=== PATIENT | female | born 1960 | race Caucasian/White ===

== ENCOUNTER 2017-08-05 07:55 | Observation (INO) | payer BC ==
[~2017-08-05] VITALS: Ht 152.4 cm; Wt 51.8 kg
[~2017-08-05 07:55] MED LIST: HYOS0.1283 SL; LEVO500T2 PO; PROM25SU43 RC
[2017-08-05] MEDS ORDERED: fentaNYL INJECTION 100 MCG/2 ML AMP IVP STA ×2 (08:06→09:19)
[2017-08-05] MEDS ORDERED: NS IV 1000 ML 1,000 ML IV ONE (08:06)
--- NOTE | 2017-08-05 08:14 | ED Abdominal Pain ---
General Stated Complaint: ABDOMINAL PAIN,VOMITTING Source of Information: Patient Exam Limitations: No Limitations History of Present Illness Date Seen by Provider: Aug 05, 2017 Time Seen by Provider: 08:01 Initial Comments Here with complaint of abdominal distention and pain that has worsened since 9 p.m. last night. Has complicated history with regard to abdominal problems including bowel obstruction in the past. She reports that she's had to have NG tube placed due to obstruction. Has diagnosis of gastroparesis now as well. Denies fever or chills. Did have small stool earlier but not significant stool. Last time that she had have NG tube placed was about 2 months ago. She follows with a service director in [place]. Timing/Duration: 12 Hours Severity/Quality: Moderate, Severe Location: Generalized Abdomen Radiation: Epigastric Activities at Onset: None Modifying Factors: Worsens With Eating; Improves With Vomiting Associated Symptoms: No Back Pain, No Chest Pain, No Diaphoresis, No Fever/ Chills; Nausea/Vomiting; No Shortness of Air; Swelling/Mass in Abdomen Allergies and Home Medications Allergies Coded Allergies: No Known Drug Allergies (Unverified , 08/05/17) Patient Home Medication List Home Medication List Reviewed: Yes (currently only takes Prilosec twice a day) Review of Systems Constitutional: see HPI; No chills; fever EENTM: No Symptoms Reported Respiratory: No Symptoms Reported; Denies Cough, Denies SOA at Rest Cardiovascular: No Symptoms Reported Gastrointestinal: See HPI, Abdominal Pain, Nausea, Vomiting Genitourinary: No Symptoms Reported Musculoskeletal: No back pain, No muscle pain Skin: No change in color, No lesions Psychiatric/Neurological: No Symptoms Reported Endocrine: No Symptoms Reported All Other Systems Reviewed Negative Unless Noted: Yes Past Wtylmgv-Czkavy-Nfikyt Hx Past Med/Social Hx: Reviewed Nursing Past Med/Soc Hx Patient Social History Alcohol Use: Denies Use Recreational Drug Use: No Smoking Status: Never a Smoker Recent Foreign Travel: No Contact w/Someone Who Travel: No Past Medical History Surgeries: Yes Abdominal, Cardiac, Section, Eye Surgery, Gallbladder, Orthopedic, Tubal Ligation Respiratory: No Palpitations Neurological: Yes Headaches /Migraines 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, Menopausal Gastrointestinal: Yes Gastroesophageal Reflux, Obstructive Bowel, Pancreatitis, Ulcer Musculoskeletal: Yes Degenerate Disk Disease, Chronic Back Pain Psychosocial: Yes Sleep Difficulties Family Medical History Reviewed and Corrections made No Pertinent Family Hx Physical Exam Vital Signs Vital Signs - First Documented 08/05/17 08:00 Temp 98.6 Pulse 93 Resp 18 B/P (MAP) 136/90 (105) O2 Delivery Room Air Capillary Refill : General Appearance: WD/WN, moderate distress (pain related) HEENT: PERRL/EOMI, pharynx normal Neck: full range of motion, supple Respiratory: lungs clear, normal breath sounds Cardiovascular: regular rate, rhythm, no murmur Peripheral Pulses: 2+ Dorsalis Pedis (R), 2+ Left Dors-Pedis (L), 2+ Radial Pulses (R), 2+ Radial Pulses (L) Gastrointestinal: soft, distended, tenderness (diffusely but greatest in the upper quadrants.) Extremities: non-tender, normal inspection Back: normal inspection, no CVA tenderness, no vertebral tenderness Neurologic/Psychiatric: alert, oriented x 3 Skin: normal color, warm/dry Progress/Results/Core Measures Results/Orders Lab Results Laboratory Tests Test 08/05/17 08:11 08/05/17 09:12 Range/Units White Blood Count 8.5 4.3-11.0 10^3/uL Red Blood Count 4.89 4.35-5.85 10^6/uL Hemoglobin 11.3 L 11.5-16.0 G/DL Hematocrit 35 35-52 % Mean Corpuscular Volume 72 L 80-99 FL Mean Corpuscular Hemoglobin 23 L 25-34 PG Mean Corpuscular Hemoglobin Concent 32 32-36 G/DL Red Cell Distribution Width 14.7 H 10.0-14.5 % Platelet Count 505 H 130-400 10^3/uL Mean Platelet Volume 9.9 7.4-10.4 FL Neutrophils (%) (Auto) 89 H 42-75 % Lymphocytes (%) (Auto) 8 L 12-44 % Monocytes (%) (Auto) 3 0-12 % Eosinophils (%) (Auto) 0 0-10 % Basophils (%) (Auto) 0 0-10 % Neutrophils # (Auto) 7.6 1.8-7.8 X 10^3 Lymphocytes # (Auto) 0.7 L 1.0-4.0 X 10^3 Monocytes # (Auto) 0.3 0.0-1.0 X 10^3 Eosinophils # (Auto) 0.0 0.0-0.3 10^3/uL Basophils # (Auto) 0.0 0.0-0.1 10^3/uL Neutrophils % (Manual) 84 % Lymphocytes % (Manual) 13 % Monocytes % (Manual) 3 % Dohle Bodies MODERATE Sodium Level 146 H 135-145 MMOL/L Potassium Level 3.7 3.6-5.0 MMOL/L Chloride Level 108 H 98-107 MMOL/L Carbon Dioxide Level 22 21-32 MMOL/L Anion Gap 16 H 5-14 MMOL/L Blood Urea Nitrogen 13 7-18 MG/DL Creatinine 0.80 0.60-1.30 MG/DL Estimat Glomerular Filtration Rate > 60 BUN/Creatinine Ratio 16 Glucose Level 167 H 70-105 MG/DL Calcium Level 10.8 H 8.5-10.1 MG/DL Magnesium Level 2.2 1.8-2.4 MG/DL Total Bilirubin 0.3 0.1-1.0 MG/DL Aspartate Amino Transf (AST/SGOT) 13 5-34 U/L Alanine Aminotransferase (ALT/SGPT) 9 0-55 U/L Alkaline Phosphatase 66 40-136 U/L Total Protein 8.0 6.4-8.2 GM/DL Albumin 5.1 H 3.2-4.5 GM/DL Amylase Level 100 25-125 U/L Lipase 97 H 8-78 U/L Urine Color YELLOW Urine Clarity CLEAR Urine pH 9 5-9 Urine Specific [place] 1.015 L 1.016-1.022 Urine Protein 2+ H NEGATIVE Urine Glucose (UA) NEGATIVE NEGATIVE Urine Ketones NEGATIVE NEGATIVE Urine Nitrite NEGATIVE NEGATIVE Urine Bilirubin NEGATIVE NEGATIVE Urine Urobilinogen NORMAL NORMAL MG/DL Urine Leukocyte Esterase 1+ H NEGATIVE Urine RBC (Auto) NEGATIVE NEGATIVE Urine RBC NONE /HPF Urine WBC 0-2 /HPF Urine Squamous Epithelial Cells 2-5 /HPF Urine Crystals NONE /LPF Urine Bacteria NEGATIVE /HPF Urine Casts NONE /LPF Urine Mucus LARGE H /LPF Urine Culture Indicated NO My Orders Orders - GABRIELA BENNETT MD Amylase (08/05/17 08:06) Cbc With Automated Diff (08/05/17 08:06) Comprehensive Metabolic Panel (08/05/17 08:06) Lipase (08/05/17 08:06) Magnesium (08/05/17 08:06) Ua Culture If Indicated (08/05/17 08:06) Ct Abdomen/Pelvis W (08/05/17 08:06) Saline Lock/Iv-Start (08/05/17 08:06) Ns Iv 1000 Ml (Sodium Chloride 0.9%) (08/05/17 08:06) Ondansetron Injection (Zofran Injectio (08/05/17 08:15) Fentanyl Injection (Sublimaze Injection (08/05/17 08:06) Iohexol Injection (Omnipaque 350 Mg/Ml 1 (08/05/17 08:15) Ns (Ivpb) (Sodium Chloride 0.9%) (08/05/17 08:15) Manual Differential (08/05/17 08:11) Ng Tube Insert & Assessment (08/05/17 09:19) Fentanyl Injection (Sublimaze Injection (08/05/17 09:19) Chest 1 View, Ap/Pa Only (08/05/17 10:23) Medications Given in ED Current Medications Medications Dose Ordered Sig/Cathy Route Start Time Stop Time Status Last Admin Dose Admin Iohexol 100 ml ONCE ONCE IV 08/05/17 08:15 08/05/17 08:43 DC 08/05/17 08:54 100 ML Ondansetron HCl 4 mg ONCE ONCE IVP 08/05/17 08:15 08/05/17 08:16 DC 08/05/17 08:17 4 MG Sodium Chloride 80 ml ONCE ONCE IV 08/05/17 08:15 08/05/17 08:43 DC 08/05/17 08:54 80 ML Sodium Chloride 1,000 ml @ 0 mls/hr Q0M ONCE IV 08/05/17 08:06 08/05/17 08:09 DC 08/05/17 08:20 1,000 MLS/HR Vital Signs/I&O 08/05/17 08:00 Temp 98.6 Pulse 93 Resp 18 B/P (MAP) 136/90 (105) O2 Delivery Room Air Progress Progress Note : Progress Note Seen and evaluated. IV, labs and UA ordered. Normal saline 1 L bolus. Zofran 4 mg IV and fentanyl [address] abdomen and pelvis with contrast ordered. Monitor patient. 0945: I have discussed the case with the radiologist and have reviewed the film. I have ordered an NG tube and repeat fentanyl 50 g IV for pain. I have discussed the case with Dr. Mccormick who will see the patient in the ER. Patient updated on all findings and concerns and agrees with plan. 1115: Dr. Mccormick has seen the patient and will admit her, inpatient status. Patient agrees with plan. Approximately 1500 mL of fluid out after NG placement. Patient states she feels better. Diagnostic Imaging Diagonstic Imaging: CT Plain Films/CT/US/NM/MRI: abdomen, pelvis Comments TECHNIQUE: Multiple contiguous axial images were obtained through the abdomen and pelvis after administration of intravenous contrast. INDICATION: Left upper quadrant pain. FINDINGS: The previous CT abdomen/pelvis exam of 05/02/2015 noted marked distention of the stomach. There also appeared to be distention of the proximal small bowel adjacent to the stomach and there were postsurgical changes at the gastroenteric junction. There are similar findings on this study. The stomach is perhaps even more greatly distended than noted on the prior exam. I am concerned that there is a gastric outlet obstruction. If further study is desired, then either endoscopy or an upper GI exam would be recommended. At any rate, consideration should be given to the insertion of an NG tube to decompress the stomach and the small bowel. There is no acute abnormality of the abdomen or pelvis noted otherwise. The liver, spleen, pancreas, adrenals, kidneys, aorta and inferior vena cava show no sign of an acute abnormality. Pancreas is flattened, however, due to the distended stomach. As noted on the prior exam, the gallbladder is surgically absent. There is no pelvic mass or free fluid collection noted. The uterus and urinary bladder are unchanged when compared to the prior study. The appendix is not well visualized. There are no indirect signs of acute appendicitis. The bone windows show no evidence for a fracture or for a destructive lesion. The postsurgical changes at L4-L5 noted previously are no different. The lung bases are clear. IMPRESSION: 1. There is marked distention of the stomach by fluid and particulate matter. This appearance is quite similar to the prior exam and is most likely due to a gastric outlet obstruction near the anastomosis of the stomach and small bowel. Recommendations as above. 2. There is no acute abnormality of the abdomen or pelvis noted otherwise. 3. These results were discussed with Dr. Bennett in the ER. Dictated on workstation # [id number] Dict: 08/05/17 0909 Trans: 08/05/17 0941 [id number] Interpreted by: KENNY SILVEIRA MD Electronically signed by: Reviewed: Reviewed by Me, Discussed w/Radiologist Departure Communication (Admissions) Time/Spoke to Admitting Phy: 09:45 Impression Primary Impression: Small bowel obstruction Disposition: ADMITTED INPATIENT Condition: Stable Admissions Decision to Admit Reason: Admit from ER (General) Decision to Admit/Date: Aug 05, 2017 Time/Decision to Admit Time: 09:45 Departure-Patient Inst. Referrals: CRISTIAN COMBS MD (PCP/Family) Primary Care Physician GABRIELA BENNETT MD Aug 05, 2017 08:14
[2017-08-05] MEDS ORDERED: NS 250 ML (IVPB) BAG IV ONE (08:15)
[2017-08-05] MEDS ORDERED: IOHEXOL 350 MG/ML 100 ML (OMNIPAQUE 350) VIAL IV ONE (08:15)
[2017-08-05] MEDS ORDERED: ONDANSETRON 4 MG/2 ML (SDV) Z0FRAN IVP ONE (08:15)
[2017-08-05 08:19] LABS: BASOPHILS % (AUTO) 0 % (0-10); EOSINOPHILS % (AUTO) 0 % (0-10); HEMATOCRIT 35 % (35-52); HEMOGLOBIN 11.3 G/DL (11.5-16.0); LYMPHOCYTES # (AUTO) 0.7 X 10^3 (1.0-4.0); LYMPHOCYTES % (AUTO) 8 % (12-44); MEAN CORPUSCULAR HEMOGLOBIN 23 PG (25-34); MEAN CORPUSCULAR HGB CONC 32 G/DL (32-36); MEAN CORPUSCULAR VOLUME 72 FL (80-99); MEAN PLATELET VOLUME 9.9 FL (7.4-10.4); MONOCYTES # (AUTO) 0.3 X 10^3 (0.0-1.0); MONOCYTES % (AUTO) 3 % (0-12); NEUTROPHILS # (AUTO) 7.6 X 10^3 (1.8-7.8); NEUTROPHILS % (AUTO) 89 % (42-75); PLATELET COUNT 505 10^3/uL (130-400); RED BLOOD COUNT 4.89 10^6/uL (4.35-5.85); RED CELL DISTRIBUTION WIDTH 14.7 % (10.0-14.5); WHITE BLOOD COUNT 8.5 10^3/uL (4.3-11.0)
[2017-08-05] MEDS ORDERED: OMEP40CA36 PO (08:29)
[2017-08-05 08:33] LABS: LYMPHOCYTES % (MANUAL) 13 %; MONOCYTES % (MANUAL) 3 %; NEUTROPHILS % (MANUAL) 84 %
[2017-08-05 08:36] LABS: ALANINE AMINOTRANSFERASE 9 U/L (0-55); ALBUMIN 5.1 GM/DL (3.2-4.5); ALKALINE PHOSPHATASE 66 U/L (40-136); AMYLASE 100 U/L (25-125); BILIRUBIN,TOTAL 0.3 MG/DL (0.1-1.0); BUN/CREATININE RATIO 16; CALCIUM 10.8 MG/DL (8.5-10.1); CARBON DIOXIDE 22 MMOL/L (21-32); CHLORIDE 108 MMOL/L (98-107); GFR ESTIMATED > 60; GLUCOSE 167 MG/DL (70-105); LIPASE 97 U/L (8-78); MAGNESIUM 2.2 MG/DL (1.8-2.4); POTASSIUM 3.7 MMOL/L (3.6-5.0); SODIUM 146 MMOL/L (135-145)
[2017-08-05 09:25] LABS: BILIRUBIN,URINE NEGATIVE (NEGATIVE); CLARITY,URINE CLEAR; COLOR,URINE YELLOW; GLUCOSE, URINE (UA) NEGATIVE (NEGATIVE); KETONES,URINE NEGATIVE (NEGATIVE); LEUKOCYTE ESTERASE ,URINE 1+ (NEGATIVE); NITRITE,URINE NEGATIVE (NEGATIVE); PH,URINE 9 (5-9); PROTEIN,URINE 2+ (NEGATIVE); UROBILINOGEN,URINE NORMAL (NORMAL)
--- NOTE | 2017-08-05 09:42 | Diagnostic Imaging Report ---
PROCEDURE: CT abdomen and pelvis with contrast. TECHNIQUE: Multiple contiguous axial images were obtained through the abdomen and pelvis after administration of intravenous contrast. INDICATION: Left upper quadrant pain. FINDINGS: The previous CT abdomen/pelvis exam of 05/02/2015 noted marked distention of the stomach. There also appeared to be distention of the proximal small bowel adjacent to the stomach and there were postsurgical changes at the gastroenteric junction. There are similar findings on this study. The stomach is perhaps even more greatly distended than noted on the prior exam. This appearance does suggest that there is a recurrent obstruction of the anastomosis.. If further study is desired, then either endoscopy or an upper GI exam would be recommended. At any rate, consideration should be given to the insertion of an NG tube to decompress the stomach and the small bowel. There is no acute abnormality of the abdomen or pelvis noted otherwise. The liver, spleen, pancreas, adrenals, kidneys, aorta and inferior vena cava show no sign of an acute abnormality. Pancreas is flattened, however, due to the distended stomach. As noted on the prior exam, the gallbladder is surgically absent. There is no pelvic mass or free fluid collection noted. The uterus and urinary bladder are unchanged when compared to the prior study. The appendix is not well visualized. There are no indirect signs of acute appendicitis. The bone windows show no evidence for a fracture or for a destructive lesion. The postsurgical changes at L4-L5 noted previously are no different. The lung bases are clear. IMPRESSION: 1. There is marked distention of the stomach by fluid and particulate matter. This appearance is quite similar to the prior exam and is most likely due to a gastric outlet obstruction near the anastomosis of the stomach and small bowel. Recommendations as above. 2. There is no acute abnormality of the abdomen or pelvis noted otherwise. 3. These results were discussed with Dr. Ledesma in the ER. Dictated by: Dictated on workstation # [id number]
[2017-08-05 09:44] LABS: BACTERIA,URINE NEGATIVE /HPF; WBC,URINE 0-2 /HPF
--- NOTE | 2017-08-05 11:16 | Diagnostic Imaging Report ---
INDICATION: Lower abdominal pain intermittently since last night with vomiting. TECHNIQUE: Single view chest 10:55 a.m. CORRELATION STUDY: 05/02/2015. FINDINGS: A gastric tube has been placed with tip in the left upper quadrant. There does appear to be moderate amount of retained gastric contents. Heart size, mediastinum and vasculature within normal limits. Lungs with minimal left basilar scarring or atelectasis. IMPRESSION: 1. Gastric tube has been in place. There does appear to be significant amount of retained gastric contents. Correlation for potential gastric outlet obstruction or gastroparesis. Dictated by: Dictated on workstation # [id number]
[2017-08-05] MEDS ORDERED: ONDANSETRON 4 MG/2 ML (SDV) Z0FRAN IVP PRN (11:30)
[2017-08-05 11:43] VITALS: BP 145/70
--- NOTE | 2017-08-05 11:45 | History & Physical-Surgical ---
History of Present Illness History of Present Illness Reason for visit/HPI HPI per ED: Here with complaint of abdominal distention and pain that has worsened since 9 p.m. last night. Has complicated history with regard to abdominal problems including bowel obstruction in the past. She reports that she's had to have NG tube placed due to obstruction. Has diagnosis of gastroparesis now as well. Denies fever or chills. Did have small stool earlier but not significant stool. Last time that she had have NG tube placed was about 2 months ago. 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 Timing/Duration: 12 Hours Severity/Quality: Moderate, Severe Location: Generalized Abdomen Radiation: Epigastric Activities at Onset: None Modifying Factors: Worsens With Eating; Improves With Vomiting Associated Symptoms: No Back Pain, No Chest Pain, No Diaphoresis, No Fever/ Chills; Nausea/Vomiting; No Shortness of Air; Swelling/Mass in Abdomen When I spoke to pt she stated this basically started 3 yrs ago, during EGD an ulcer was found and attampt to dilate (pt states cauterize) caused perforation. She then had sugery to "reroute" intestine. She states she get pain like this often and goes to the ER 3-4 times a year at least. Today's episode started last monday but went away monday, then came back monday and then went away. Pain came back last night and wouldn't go away, she was up all night with nausea and vomiting and pain 10 out of 10. She states she has been told she has gastroparesis. Recently saw GI in [place] and EGD at that time showed a Gastro-jejunal ulcer. Date of Admission Aug 05, 2017 at 11:06 Time Seen by Provider: 11:01 I consulted on this patient on 08/05/17 11:34 Attending Physician Zhou Mccormick DO Admitting Physician Jaye Redman MD Consult Allergies and Home Medications Allergies Coded Allergies: No Known Drug Allergies (Unverified , 04/09/15) Patient Home Medication List Home Medication List Reviewed: Yes Past Goizjol-Gjyeyp-Idrkzw Hx Patient Social History Alcohol Use: Denies Use Recreational Drug Use: No Smoking Status: Never a Smoker Recent Foreign Travel: No Contact w/Someone Who Travel: No Recent Infectious Disease Expo: No Surgeries History of Surgeries: Yes Surgeries: Abdominal, Cardiac, Section, Eye Surgery, Gallbladder, Orthopedic, Tubal Ligation Respiratory History of Respiratory Disorde: No Cardiovascular History of Cardiac Disorders: Yes (CARDIAC ABLATION 2009 ) Cardiac Disorders: Palpitations Neurological History of Neurological Disord: Yes Neurological Disorders: Headaches /Migraines Reproductive System Hx Reproductive Disorders: 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, Menopausal Gastrointestinal History of Gastrointestinal Di: Yes (GASTROPARESIS) Gastrointestinal Disorders: Gastroesophageal Reflux, Obstructive Bowel, Pancreatitis, Ulcer Musculoskeletal History of Musculoskeletal Dis: Yes Musculoskeletal Disorders: Degenerate Disk Disease, Chronic Back Pain Endocrine History of Endocrine Disorders: No Cancer History of Cancer: No Psychosocial History of Psychiatric Problem: Yes Behavioral Health Disorders: Sleep Difficulties Family Medical History Significant Family History: Heart Disease (Mother has CHF), Cancer (Father had melanoma), Hypertension (mother) Constitutional: diaphoresis, dizziness, weakness EENTM: No blurred vision, No eye pain, No mouth pain, No mouth swelling, No epistaxis, No throat swelling Respiratory: No cough, No dyspnea on exertion Cardiovascular: No chest pain, No edema; palpitations Gastrointestinal: abdominal pain; No hematemesis; nausea, vomiting, other ( bloating) Genitourinary: No dysuria, No frequency, No hematuria Musculoskeletal: back pain, joint pain, joint swelling, muscle stiffness Skin: No change in color, No change in hair/nails, No lesions Psychiatric/Neurological: Denies Anxiety, Denies Depressed; Headache; Denies Seizure, Denies Tremors pt denies any abnormal bruising or bleeding, no heat or cold intolerance Physical Exam Vital Signs Vital Signs - First Documented 08/05/17 08/05/17 08:00 11:14 Temp 98.6 Pulse 93 Resp 18 B/P (MAP) 136/90 (105) Pulse Ox 97 O2 Delivery Room Air Capillary Refill : Less Than 3 Seconds General Appearance: WD/WN, Mild Distress Eyes: Bilateral Eye PERRL, Bilateral Eye EOMI HEENT: PERRL/EOMI, Pharynx Normal, Moist Mucous Membranes; No Pale Conjunctivae (L), No Pale Conjunctivae (R), No Scleral Icterus (L), No Scleral Icterus (R) Neck: Full Range of Motion, Normal Inspection, Non Tender, Supple Respiratory: Chest Non Tender, Lungs Clear, Normal Breath Sounds, No Accessory Muscle Use, No Respiratory Distress Cardiovascular: Regular Rate, Rhythm, No Edema, No Murmur, Normal Peripheral Pulses Gastrointestinal: Normal Bowel Sounds, No Organomegaly, No Pulsatile Mass, Soft , Tenderness (mildly tender) Back: No CVA Tenderness, No Vertebral Tenderness Extremity: Normal Capillary Refill, Normal Inspection, Normal Range of Motion, Non Tender, No Calf Tenderness Neurologic/Psychiatric: Alert, Oriented x3, No Motor/Sensory Deficits, Normal Mood/Affect, wire drawer II-XII Norm as Tested Skin: Normal Color, Warm/Dry Lymphatic: No Adenopathy (neck, axilla or groin) Data Review Labs Laboratory Tests 08/05/17 08:11: White Blood Count 8.5, Red Blood Count 4.89, Hemoglobin 11.3L, Hematocrit 35, Mean Corpuscular Volume 72L, Mean Corpuscular Hemoglobin 23L, Mean Corpuscular Hemoglobin Concent 32, Red Cell Distribution Width 14.7H, Platelet Count 505H, Mean Platelet Volume 9.9, Neutrophils (%) (Auto) 89H, Lymphocytes (%) (Auto) 8L , Monocytes (%) (Auto) 3, Eosinophils (%) (Auto) 0, Basophils (%) (Auto) 0, Neutrophils # (Auto) 7.6, Lymphocytes # (Auto) 0.7L, Monocytes # (Auto) 0.3, Eosinophils # (Auto) 0.0, Basophils # (Auto) 0.0, Neutrophils % (Manual) 84, Lymphocytes % (Manual) 13, Monocytes % (Manual) 3, Dohle Bodies MODERATE, Sodium Level 146H, Potassium Level 3.7, Chloride Level 108H, Carbon Dioxide Level 22, Anion Gap 16H, Blood Urea Nitrogen 13, Creatinine 0.80, Estimat Glomerular Filtration Rate > 60, BUN/Creatinine Ratio 16, Glucose Level 167H, Calcium Level 10.8H, Magnesium Level 2.2, Total Bilirubin 0.3, Aspartate Amino Transf (AST/SGOT) 13, Alanine Aminotransferase (ALT/SGPT) 9, Alkaline Phosphatase 66, Total Protein 8.0, Albumin 5.1H, Amylase Level 100, Lipase 97H 08/05/17 09:12: Urine Color YELLOW, Urine Clarity CLEAR, Urine pH 9, Urine Specific [place] 1.015L, Urine Protein 2+H, Urine Glucose (UA) NEGATIVE, Urine Ketones NEGATIVE, Urine Nitrite NEGATIVE, Urine Bilirubin NEGATIVE, Urine Urobilinogen NORMAL, Urine Leukocyte Esterase 1+H, Urine RBC (Auto) NEGATIVE, Urine RBC NONE, Urine WBC 0-2, Urine Squamous Epithelial Cells 2-5, Urine Crystals NONE, Urine Bacteria NEGATIVE, Urine Casts NONE, Urine Mucus LARGEH, Urine Culture Indicated NO Assessment/Plan Assessment/Plan Admission Diagonsis Partial Gastric Outlet Obstruction Admission Status: Observation Assessment/Plan Partial Gastric Outlet Obstruction Gastro-jejunal ulcer Gastric Distention Gastroparesis Pt will be admitted with IV fluids, NPO, anti-emetics, pain control and NGT to [facility]. Pt was told to ambulate and use IS. Will get repeat abd xray in am. Hopefully this will resolve on its own; but she may need EGD. Will try to avoid surgery. Protonix drip will be started. Pt must find specialist in Gastroparesis; hopefully they will have something to offer (stimulator or even total gastric resection). ZHOU MCCORMICK DO Aug 05, 2017 11:45
[2017-08-05] MEDS: LACTATED RINGERS 1,000 ML IV SCH ×2 (12:28→19:51)
[2017-08-05] MEDS ORDERED: SUCR1TAB36 PO (12:34)
[2017-08-05] MEDS: PANTOPRAZOLE INJECTION 200 MG in D5W 100 ML IVPB 50 ML IV SCH (12:58)
[2017-08-05] MEDS: morphine INJ 10 MG/ML 1ML (SYR OR VIAL) IVP PRN ×3 (12:58→21:50)
[2017-08-05 15:35] VITALS: BP 122/72
[2017-08-05 19:40] VITALS: BP 116/57
[2017-08-06 00:12] VITALS: BP 134/71
[2017-08-06] MEDS: morphine INJ 10 MG/ML 1ML (SYR OR VIAL) IVP PRN ×3 (03:52→19:31)
[2017-08-06] MEDS: LACTATED RINGERS 1,000 ML IV SCH ×3 (03:53→18:46)
[2017-08-06 04:23] VITALS: BP 144/70
[2017-08-06 05:18] LABS: BASOPHILS % (AUTO) 1 % (0-10); EOSINOPHILS # (AUTO) 0.1 10^3/uL (0.0-0.3); EOSINOPHILS % (AUTO) 1 % (0-10); HEMATOCRIT 31 % (35-52); HEMOGLOBIN 9.5 G/DL (11.5-16.0); LYMPHOCYTES # (AUTO) 2.6 X 10^3 (1.0-4.0); LYMPHOCYTES % (AUTO) 34 % (12-44); MEAN CORPUSCULAR HEMOGLOBIN 23 PG (25-34); MEAN CORPUSCULAR HGB CONC 31 G/DL (32-36); MEAN CORPUSCULAR VOLUME 74 FL (80-99); MEAN PLATELET VOLUME 9.6 FL (7.4-10.4); MONOCYTES # (AUTO) 0.6 X 10^3 (0.0-1.0); MONOCYTES % (AUTO) 7 % (0-12); NEUTROPHILS # (AUTO) 4.3 X 10^3 (1.8-7.8); NEUTROPHILS % (AUTO) 57 % (42-75); PLATELET COUNT 405 10^3/uL (130-400); RED CELL DISTRIBUTION WIDTH 14.9 % (10.0-14.5); WHITE BLOOD COUNT 7.6 10^3/uL (4.3-11.0)
[2017-08-06 05:40] LABS: ALANINE AMINOTRANSFERASE 8 U/L (0-55); ALBUMIN 3.7 GM/DL (3.2-4.5); ALKALINE PHOSPHATASE 50 U/L (40-136); BILIRUBIN,TOTAL 0.3 MG/DL (0.1-1.0); BUN/CREATININE RATIO 14; CALCIUM 8.6 MG/DL (8.5-10.1); CARBON DIOXIDE 24 MMOL/L (21-32); CHLORIDE 109 MMOL/L (98-107); CREATININE SERUM 0.71 MG/DL (0.60-1.30); GFR ESTIMATED > 60; GLUCOSE 109 MG/DL (70-105); POTASSIUM 3.3 MMOL/L (3.6-5.0); SODIUM 144 MMOL/L (135-145); TOTAL PROTEIN 5.6 GM/DL (6.4-8.2)
[2017-08-06 08:00] VITALS: BP 114/54
--- NOTE | 2017-08-06 09:53 | Diagnostic Imaging Report ---
INDICATION: Gastric obstruction. TECHNIQUE: Single supine portable view of the abdomen 2:32 AM. CORRELATION STUDY: 05/02/2015 FINDINGS: Gastric tube noted in the left mid upper abdomen likely along the greater curvature of the body of the stomach. Scattered gas filled loops of bowel are present. Surgical changes of a suture line as well as dina are present. IMPRESSION: 1. Gastric tube tip likely in the region of the body of the stomach along the greater curvature. Dictated by: Dictated on workstation # [id number]
[2017-08-06] MEDS: PANTOPRAZOLE INJECTION 200 MG in D5W 100 ML IVPB 50 ML IV SCH (11:19)
[2017-08-06 12:00] VITALS: BP_SYST 118; BP_SYST 178; BP_DIAS 61; BP_DIAS 84
--- NOTE | 2017-08-06 14:02 | Progress Note ---
Subjective Time Seen by Provider: 12:20 Subjective/Events-last exam Pt seen and examined, states she feels better than yesterday. However, she states the tube in her nose is making her nauseous and giving her a headache. Pt denies flatus or BM and denies abdominal pain. Review of Systems General: No Chills, No Night Sweats HEENT: Head Aches Pulmonary: No Dyspnea, No Cough Cardiovascular: No: Chest Pain, Palpitations Gastrointestinal: Nausea, Abdominal Pain, Constipation; No: Vomiting Objective Exam Vital Signs Date Time Temp Pulse Resp B/P (MAP) Pulse Ox O2 Delivery O2 Flow Rate FiO2 08/06/17 12:00 98.6 70 18 118/61 (80) 97 Room Air 08/06/17 08:00 98.9 74 18 114/54 (74) 97 Room Air 08/06/17 04:23 99.2 81 18 144/70 (94) 96 Room Air 08/06/17 00:12 100.7 79 18 134/71 (92) 97 Room Air 08/05/17 19:40 99.8 73 18 116/57 (76) 99 Room Air 08/05/17 15:35 98.6 75 18 122/72 (89) 99 Room Air I & O 08/06/17 07:00 Intake Total 2000 ml Output Total 1250 ml Balance 750 ml Capillary Refill : Less Than 3 Seconds General Appearance: WD/WN, Mild Distress HEENT: PERRL/EOMI, Pharynx Normal, Moist Mucous Membranes; No Pale Conjunctivae (L), No Pale Conjunctivae (R), No Scleral Icterus (L), No Scleral Icterus (R) Neck: Full Range of Motion, Normal Inspection, Non Tender, Supple Respiratory: Chest Non Tender, Lungs Clear, Normal Breath Sounds, No Accessory Muscle Use, No Respiratory Distress Cardiovascular: Regular Rate, Rhythm, No Edema, No Murmur, Normal Peripheral Pulses Peripheral Pulses: 2+ Dorsalis Pedis (R), 2+ Left Dors-Pedis (L), 2+ Radial Pulses (R), 2+ Radial Pulses (L) Gastrointestinal: soft, tenderness (very minimal, abdomen is very soft now) Extremity: Normal Capillary Refill, Normal Inspection, Normal Range of Motion, Non Tender, No Calf Tenderness Neurologic/Psychiatric: Alert, Oriented x3, No Motor/Sensory Deficits, Normal 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, 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 Skin: Normal Color, Warm/Dry Lymphatic: No Adenopathy (neck, axilla or groin) Results Lab Laboratory Tests 08/06/17 05:02: White Blood Count 7.6, Red Blood Count 4.20L, Hemoglobin 9.5L, Hematocrit 31L, Mean Corpuscular Volume 74L, Mean Corpuscular Hemoglobin 23L, Mean Corpuscular Hemoglobin Concent 31L, Red Cell Distribution Width 14.9H, Platelet Count 405H, Mean Platelet Volume 9.6, Neutrophils (%) (Auto) 57, Lymphocytes (%) (Auto) 34, Monocytes (%) (Auto) 7, Eosinophils (%) (Auto) 1, Basophils (%) (Auto) 1, Neutrophils # (Auto) 4.3, Lymphocytes # (Auto) 2.6, Monocytes # (Auto) 0.6, Eosinophils # (Auto) 0.1, Basophils # (Auto) 0.0, Sodium Level 144, Potassium Level 3.3L, Chloride Level 109H, Carbon Dioxide Level 24, Anion Gap 11, Blood Urea Nitrogen 10, Creatinine 0.71, Estimat Glomerular Filtration Rate > 60, BUN/ Creatinine Ratio 14, Glucose Level 109H, Calcium Level 8.6, Total Bilirubin 0.3 , Aspartate Amino Transf (AST/SGOT) 10, Alanine Aminotransferase (ALT/SGPT) 8, Alkaline Phosphatase 50, Total Protein 5.6L, Albumin 3.7 Assessment/Plan Assessment/Plan Assessment/Plan Partial Gastric Outlet Obstruction Gastro-jejunal ulcer Gastric Distention Gastroparesis Pt will continue NPO, anti-emetics, pain control and NGT to LIWS. Will clamp NGT and hold for 4 hours; if less than 150ml out once hooked back up will then d /c NGT. Pt was told to ambulate and use IS. This seems to be resolving on its own; will hold off on EGD. Continue protonix drip; no surgery planned at this time. Pt must find specialist in Gastroparesis ; hopefully they will have something to offer (stimulator or even total gastric resection). Clinical Quality Measures DVT/VTE Risk/Contraindication: Risk Factor Score Per Nursin RFS Level Per Nursing on Admit: 1=Low/No VTE PPX YARI BENITEZ DO Aug 06, 2017 14:02
[2017-08-06 15:55] VITALS: BP 123/62
[2017-08-06 19:20] VITALS: BP 131/68
[2017-08-07 00:31] VITALS: BP 115/57
[2017-08-07] MEDS: LACTATED RINGERS 1,000 ML IV SCH ×2 (02:56→10:39)
[2017-08-07 04:42] VITALS: BP 114/61
[2017-08-07 08:08] VITALS: BP 116/56
--- NOTE | 2017-08-07 11:32 | Progress Note ---
Subjective Time Seen by Provider: 11:01 Subjective/Events-last exam Pt seen and examined, denies nausea, vomiting or abdominal distention. + Flatus No abdominal pain, but no BM. NGT was d/c'd last night. Review of Systems General: No Chills, No Night Sweats Pulmonary: No Dyspnea, No Cough Cardiovascular: No: Chest Pain Gastrointestinal: No: Nausea, Vomiting, Abdominal Pain Objective Exam Vital Signs Date Time Temp Pulse Resp B/P (MAP) Pulse Ox O2 Delivery O2 Flow Rate FiO2 08/07/17 09:00 Room Air 08/07/17 08:08 98.6 73 20 116/56 (76) 98 Room Air 08/07/17 04:42 100.0 75 19 114/61 (78) 99 Room Air 08/07/17 00:31 98.6 78 18 115/57 (76) 99 Room Air 08/06/17 20:05 Room Air 08/06/17 19:20 99.3 85 18 131/68 (89) 98 Room Air 08/06/17 15:55 99.1 75 18 123/62 (82) 99 Room Air 08/06/17 12:00 98.6 70 18 118/61 (80) 97 Room Air I & O 08/07/17 07:00 Intake Total 1990 ml Output Total 1450 ml Balance 540 ml Capillary Refill : Less Than 3 Seconds General Appearance: No Apparent Distress, WD/WN HEENT: PERRL/EOMI, Pharynx Normal, Moist Mucous Membranes; No Pale Conjunctivae (L), No Pale Conjunctivae (R), No Scleral Icterus (L), No Scleral Icterus (R) Neck: Full Range of Motion, Normal Inspection, Non Tender, Supple Respiratory: Chest Non Tender, Lungs Clear, Normal Breath Sounds, No Accessory Muscle Use, No Respiratory Distress Cardiovascular: Regular Rate, Rhythm, No Edema, No Murmur, Normal Peripheral Pulses Peripheral Pulses: 2+ Dorsalis Pedis (R), 2+ Left Dors-Pedis (L), 2+ Radial Pulses (R), 2+ Radial Pulses (L) Gastrointestinal: soft Extremity: Normal Capillary Refill, Normal Inspection, Normal Range of Motion, Non Tender, No Calf Tenderness Neurologic/Psychiatric: Alert, Oriented x3, No Motor/Sensory Deficits, Normal 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 Drink and eat small amounts all day; not a whole lot at once. Pt must find a Gastroparesis specialist. Can follow up if she has any questions. Will DC home Clinical Quality Measures DVT/VTE Risk/Contraindication: Risk Factor Score Per Nursin RFS Level Per Nursing on Admit: 1=Low/No VTE PPX YARI BENITEZ DO Aug 07, 2017 11:32
--- NOTE | 2017-08-07 11:35 | Discharge Inst-Surgical ---
Discharge Inst-Surgical Depart Medication/Instructions New, Converted or Re-Newed RX: Other (Resume home meds) Patient Instructions Follow up Appt: Make appointment with GI specialist and try to find Gastroparesis specialist Instructions: No strenuous activity. May shower in 24 hours or take baths. Use incentive spirometer at home as directed. No Smoking Symptoms to Report: Appetite Changes, Extremity Discoloration, Numbness/Tingling, Swelling Increased , Bleeding Excessive, Eyesight Changes, Pain Increased, Urine Color Change, Constipation(Persistent), Fever over 101 degree F, Pain/Pressure in chest, Urinating Difficulty, Cough Up/Vomit Blood, Heart Beat Irreg/Pounding, Pain/ Pressure in jaw, Vaginal Bleeding Increase, Cramps in feet or legs, Lightheadedness, Pain/Pressure in shoulder, Diarrhea(Persistent), Memory Changes Suddenly, Questions/Concerns, Weight gain consecutive days, Dizziness/ Fainting, Nausea/Vomiting, Shortness of Breath, Weight gain over 2 pounds If questions or concerns contact your physician Or seek help at emergency department. Activity Driving Instructions: You May Drive Diet Discharge Diet: Eat Small Frequent Meals Diet After 24 Hours: Clear Liquid if Nauseous If Any Problems/Questions/Issu: Contact Your Physician, Go to Emergency Room Skin/Wound Care Infection Signs and Symptoms: Increased Swelling, Temperature Above 101 F YARI BENITEZ DO Aug 07, 2017 11:34
[2017-08-07 12:00] VITALS: BP 119/58
[2017-08-07] MEDS: PANTOPRAZOLE INJECTION 200 MG in D5W 100 ML IVPB 50 ML IV SCH (13:11)
== END 2017-08-07 11:33 | disposition home or self-care (01) ==
LOC: EDUNIT# 07:55 → ER 07:57 → 4TH 11:06 → UNDOADMIN 11:06 → 4TH 11:08 → UNDODISIN 08-07 13:20
PROVIDERS: ADMIT Surgery; ATTEND Surgery
DX: K31.1 Adult hypertrophic pyloric stenosis (principal); K28.9 Gastrojejunal ulcer, unspecified as acute or chronic, without hemorrhage or perforation; K31.84 Gastroparesis; Z98.0 Intestinal bypass and anastomosis status; M54.9 Dorsalgia, unspecified; K21.9 Gastro-esophageal reflux disease without esophagitis; G47.9 Sleep disorder, unspecified; Z87.19 Personal history of other diseases of the digestive system; Z86.69 Personal history of other diseases of the nervous system and sense organs
CPT/HCPCS: 36415; 71045; 74018; 74177; 80053; 81000; 82150; 83690; 83735; 85007; 85025; 85027; 94664; 96361; 96374; 96375; 96376; G0378

== ENCOUNTER 2017-10-27 04:26 | Emergency (ER) | payer BC ==
[~2017-10-27] VITALS: Ht 152.4 cm; Wt 52.2 kg
[~2017-10-27 04:26] MED LIST changes: +OMEP40CA36 PO; +SUCR1TAB36 PO
[2017-10-27] MEDS ORDERED: fentaNYL INJECTION 100 MCG/2 ML AMP ONE (05:16)
[2017-10-27] MEDS ORDERED: ONDANSETRON 4 MG/2 ML (SDV) Z0FRAN ONE (05:17)
--- NOTE | 2017-10-27 05:25 | ED Abdominal Pain ---
General Chief Complaint: Abdominal/GI Problems Stated Complaint: ABD PAIN,VOMITING Nursing Triage Note: AMBULATORY TO ED WITH C/O ABD PAIN. STATES SHE HAS HX OF GASTOPARESIS. ABD PAIN STARTED APPROX 1999, WITH NAUSEA AND VOMITING. Sepsis Screen: No Definite Risk Source of Information: Patient Exam Limitations: No Limitations (SUSIE BLOOD MD) History of Present Illness Date Seen by Provider: Oct 27, 2017 Time Seen by Provider: 05:05 Initial Comments This 57 woman presents to the emergency room with complaints of epigastric and left upper abdominal pain throughout the night. She has associated cramping and vomiting. She reports a history of gastroparesis and states long-term stomach problems associated with this. She did have a bowel movement around midnight that she had to force out. She has felt constipated. She has a history of bowel perforation and bowel obstruction. (SUSIE BLOOD MD) Allergies and Home Medications Allergies Coded Allergies: No Known Drug Allergies (Unverified , 08/05/17) Home Medications Omeprazole 40 Mg Capsule.dr, 40 MG PO BID, (Reported) Sucralfate 1 Gm Tablet, 1 GM PO QID, (Reported) PT HAS NOT TAKEN MED IN OVER 1 MONTH,REPORTS SHE IS OUT OF MED Patient Home Medication List Home Medication List Reviewed: Yes (YOUNG EISENBERG MD) Review of Systems Review of Systems Constitutional: no symptoms reported EENTM: No Symptoms Reported Respiratory: No Symptoms Reported Cardiovascular: No Symptoms Reported Gastrointestinal: See HPI Genitourinary: No Symptoms Reported Musculoskeletal: no symptoms reported Skin: no symptoms reported Psychiatric/Neurological: No Symptoms Reported Endocrine: No Symptoms Reported Hematologic/Lymphatic: No Symptoms Reported (SUSIE BLOOD MD) Past Vzkvvwd-Xngawi-Fgewpe Hx Past Med/Social Hx: Reviewed Nursing Past Med/Soc Hx (SUSIE BLOOD MD) Patient Social History Alcohol Use: Denies Use Recreational Drug Use: No Recent Foreign Travel: No Contact w/Someone Who Travel: No Recent Infectious Disease Expo: No (SUSIE BLOOD MD) Immunizations Up To Date Tetanus Booster (TDap): Unknown (SUSIE BLOOD MD) Seasonal Allergies Seasonal Allergies: No (SUSIE BLOOD MD) Past Medical History Surgeries: Yes (CARPEL TUNNEL RELEASE) Abdominal, Cardiac, Section, Eye Surgery, Gallbladder, Orthopedic, Tubal Ligation Respiratory: No Cardiac: Yes (CARDIAC ABLATION 2009 ) Palpitations Neurological: No Headaches /Migraines 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, 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 Genitourinary: No Gastrointestinal: Yes (GASTROPARESIS) Gastroesophageal Reflux, Obstructive Bowel, Pancreatitis, Ulcer Musculoskeletal: Yes Degenerate Disk Disease, Chronic Back Pain Endocrine: No HEENT: No Cancer: No Psychosocial: Yes Sleep Difficulties Integumentary: No Blood Disorders: No Adverse Reaction/Blood Tranf: No (SUSIE BLOOD MD) Family Medical History Cardiovascular disease 19 MOTHER Diabetes mellitus 19 MOTHER FH: congestive heart failure 19 MOTHER FH: melanoma 19 FATHER Gastroenteritis DAUGHTER Hypertension 19 MOTHER Polio 19 FATHER Heart Disease, Cancer, Hypertension (SUSIE BLOOD MD) Physical Exam Vital Signs Vital Signs - First Documented 10/27/17 10/27/17 05:10 08:32 Temp 99.4 Pulse 99 Resp 17 B/P (MAP) 122/82 (95) Pulse Ox 100 (JOSE RAMONYOUNG MD) Vital Signs Capillary Refill : Less Than 3 Seconds (SUSIE BLOOD MD) Height/Weight/BMI Height: 5'0.00" Weight: 115lbs. 4.0oz. 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, no motor/sensory deficits, alert, normal mood/affect, oriented x 3 Skin: normal color, warm/dry (SUSIE BLOOD MD) Progress/Results/Core Measures Results/Orders Lab Results Laboratory Tests Test 10/27/17 05:23 Range/Units White Blood Count 6.5 4.3-11.0 10^3/uL Red Blood Count 3.70 L 4.35-5.85 10^6/uL Hemoglobin 7.5 L 11.5-16.0 G/DL Hematocrit 25 L 35-52 % Mean Corpuscular Volume 68 L 80-99 FL Mean Corpuscular Hemoglobin 20 L 25-34 PG Mean Corpuscular Hemoglobin Concent 30 L 32-36 G/DL Red Cell Distribution Width 18.0 H 10.0-14.5 % Platelet Count 560 H 130-400 10^3/uL Mean Platelet Volume 9.3 7.4-10.4 FL Neutrophils (%) (Auto) 81 H 42-75 % Lymphocytes (%) (Auto) 12 12-44 % Monocytes (%) (Auto) 7 0-12 % Eosinophils (%) (Auto) 0 0-10 % Basophils (%) (Auto) 1 0-10 % Neutrophils # (Auto) 5.2 1.8-7.8 X 10^3 Lymphocytes # (Auto) 0.8 L 1.0-4.0 X 10^3 Monocytes # (Auto) 0.5 0.0-1.0 X 10^3 Eosinophils # (Auto) 0.0 0.0-0.3 10^3/uL Basophils # (Auto) 0.0 0.0-0.1 10^3/uL Sodium Level 141 135-145 MMOL/L Potassium Level 3.6 3.6-5.0 MMOL/L Chloride Level 106 98-107 MMOL/L Carbon Dioxide Level 25 21-32 MMOL/L Anion Gap 10 5-14 MMOL/L Blood Urea Nitrogen 10 7-18 MG/DL Creatinine 0.70 0.60-1.30 MG/DL Estimat Glomerular Filtration Rate > 60 BUN/Creatinine Ratio 14 Glucose Level 120 H 70-105 MG/DL Calcium Level 9.7 8.5-10.1 MG/DL Corrected Calcium 8.5-10.1 MG/DL Total Bilirubin 0.3 0.1-1.0 MG/DL Aspartate Amino Transf (AST/SGOT) 16 5-34 U/L Alanine Aminotransferase (ALT/SGPT) 16 0-55 U/L Alkaline Phosphatase 58 40-136 U/L Total Protein 7.1 6.4-8.2 GM/DL Albumin 4.6 H 3.2-4.5 GM/DL Lipase 120 H 8-78 U/L (YOUNG EISENBERG MD) My Orders Orders - YOUNG EISENBERG MD Fentanyl Injection (Sublimaze Injection (10/27/17 05:16) Ondansetron Injection (Zofran Injectio (10/27/17 05:17) (YOUNG EISENBERG MD) Medications Given in ED (YOUNG EISENEBRG MD) Vital Signs/I&O 10/27/17 10/27/17 05:10 08:32 Temp 99.4 Pulse 99 78 Resp 17 20 B/P (MAP) 122/82 (95) 122/82 Pulse Ox 100 (YOUNG EISENBERG MD) Blood Pressure Mean: 95 Progress Progress Note : Progress Note Patient had been treated with fentanyl and Zofran prior to transfer care to Dr. Eisenberg at 06:00. CT was pending at that time. Labs were reviewed and discussed with Dr. Eisenberg. (SUSIE BOLOD MD) Progress Note : Time: 07:58 Progress Note I assumed care of the patient from Dr. Gotti 6 a.m. The patient was sleeping quietly in the emergency department. Patient's laboratory evaluation demonstrated a hemoglobin of 7.5 g. This was largely unchanged according to the patient. The patient's lipase was minimally elevated at 120. The patient's nausea and abdominal pain remained effectively treated while in the emergency department. Patient's CT demonstrated nonspecific mild concentric small bowel wall thickening that could be due to either inflammatory or infectious etiology. I did discussed treatment options with patient. It was her desire to follow up closely with her personal physician and to stay at home. She requested tramadol and Zofran for pain and nausea. She promised to return to emergency department if any further problems. (YOUNG EISENBERG MD) Departure Impression Primary Impression: Nausea and vomiting Qualified Codes: R11.2 - Nausea with vomiting, unspecified Additional Impression: Upper abdominal pain Disposition: HOME, SELF-CARE Condition: Improved Departure-Patient Inst. Decision time for Depature: 08:01 (YOUNG EISENBERG MD) Referrals: CRISTIAN COMBS MD (PCP/Family) Primary Care Physician Patient Instructions: Acute Abdomen (Belly Pain), Adult (DC) Add. Discharge Instructions: Tramadol and Zofran for pain and nausea. Close f/u with your doctor. Come back if any problems. All discharge instructions reviewed with patient and/or family. Voiced understanding. SUSIE BLOOD MD Oct 27, 2017 05:25 YOUNG EISENBERG MD Oct 27, 2017 08:13
[2017-10-27] MEDS ORDERED: fentaNYL INJECTION 100 MCG/2 ML AMP IVP ONE (05:30)
[2017-10-27] MEDS ORDERED: ONDANSETRON 4 MG/2 ML (SDV) Z0FRAN IVP ONE (05:30)
[2017-10-27 05:35] LABS: BASOPHILS % (AUTO) 1 % (0-10); EOSINOPHILS % (AUTO) 0 % (0-10); HEMATOCRIT 25 % (35-52); HEMOGLOBIN 7.5 G/DL (11.5-16.0); LYMPHOCYTES # (AUTO) 0.8 X 10^3 (1.0-4.0); LYMPHOCYTES % (AUTO) 12 % (12-44); MEAN CORPUSCULAR HEMOGLOBIN 20 PG (25-34); MEAN CORPUSCULAR HGB CONC 30 G/DL (32-36); MEAN CORPUSCULAR VOLUME 68 FL (80-99); MEAN PLATELET VOLUME 9.3 FL (7.4-10.4); MONOCYTES # (AUTO) 0.5 X 10^3 (0.0-1.0); MONOCYTES % (AUTO) 7 % (0-12); NEUTROPHILS # (AUTO) 5.2 X 10^3 (1.8-7.8); NEUTROPHILS % (AUTO) 81 % (42-75); PLATELET COUNT 560 10^3/uL (130-400); WHITE BLOOD COUNT 6.5 10^3/uL (4.3-11.0)
[2017-10-27 05:52] LABS: ALANINE AMINOTRANSFERASE 16 U/L (0-55); ALBUMIN 4.6 GM/DL (3.2-4.5); ALKALINE PHOSPHATASE 58 U/L (40-136); BILIRUBIN,TOTAL 0.3 MG/DL (0.1-1.0); BUN/CREATININE RATIO 14; CALCIUM 9.7 MG/DL (8.5-10.1); CARBON DIOXIDE 25 MMOL/L (21-32); CHLORIDE 106 MMOL/L (98-107); GFR ESTIMATED > 60; GLUCOSE 120 MG/DL (70-105); LIPASE 120 U/L (8-78); POTASSIUM 3.6 MMOL/L (3.6-5.0); SODIUM 141 MMOL/L (135-145); TOTAL PROTEIN 7.1 GM/DL (6.4-8.2)
[2017-10-27] MEDS ORDERED: NS 250 ML (IVPB) BAG IV ONE (06:30)
[2017-10-27] MEDS ORDERED: IOHEXOL 350 MG/ML 100 ML (OMNIPAQUE 350) VIAL IV ONE (06:30)
--- NOTE | 2017-10-27 08:23 | Diagnostic Imaging Report ---
PROCEDURE: CT abdomen and pelvis with contrast. TECHNIQUE: Multiple contiguous axial images were obtained through the abdomen and pelvis after administration of intravenous contrast. INDICATION: Abdominal pain. CORRELATION STUDY: 08/05/2017 FINDINGS: LOWER THORAX: Clear. LIVER: Unremarkable. GALLBLADDER: Cholecystectomy. SPLEEN: Unremarkable. PANCREAS: Unremarkable. ADRENAL GLANDS: Unremarkable. KIDNEYS: Normal configuration. No calcification or obstruction. ABDOMINAL AORTA: Mild wall calcification, nonaneurysmal. GASTROINTESTINAL TRACT: Surgical change with anastomotic suture line in left upper quadrant appearing to be with the stomach and small bowel. Stomach is rather significantly distended with fluid. Fairly similar to perhaps slightly less severe from prior study. There is also diffuse fluid distention of the small bowel with scattered areas of asymmetric bowel wall thickening particularly in the left mid abdomen. Definitive transition point suggests obstruction is not visualized. However, question slightly smaller caliber loops more distally. There is fluid and gas throughout the colon. Small volume pelvic ascites. URINARY BLADDER: Unremarkable. REPRODUCTIVE: Uterus unremarkable. OSSEOUS STRUCTURES: Post anterior fusion L4-5 level. No acute bony abnormality. OTHER: None. IMPRESSION: 1. Distention of the stomach, diffuse fluid distention majority of small bowel with scattered areas of concentric small bowel wall thickening may be reflective of underlying infectious or inflammatory gastroenteritis. High-degree obstruction is not definitively demonstrated. A preliminary report was provided by [employer]. Dictated by: Dictated on workstation # [id number]
[2017-10-27 08:32] VITALS: BP 122/82
== END 2017-10-27 08:39 | disposition home or self-care (01) ==
LOC: EDUNIT# 04:26 → ER 04:28
DX: R11.2 Nausea with vomiting, unspecified (principal); R10.13 Epigastric pain; G43.909 Migraine, unspecified, not intractable, without status migrainosus; K21.9 Gastro-esophageal reflux disease without esophagitis; Z82.49 Family history of ischemic heart disease and other diseases of the circulatory system; Z87.19 Personal history of other diseases of the digestive system; Z98.890 Other specified postprocedural states; Z98.51 Tubal ligation status
CPT/HCPCS: 36415; 74177; 80053; 83690; 85025; 96374; 96375

== ENCOUNTER 2019-02-26 11:50 | Outpatient (RCR) | payer BC ==
[~2019-02-26] VITALS: Ht 145 cm; Wt 52.0 kg
[~2019-02-26 11:50] MED LIST changes: +OMEP40CA27 PO; -OMEP40CA36 PO
[2019-02-26] MEDS ORDERED: CATHETER FLUSH 10 ML SYR IV PRN (12:00)
== END 2019-05-27 | disposition home or self-care (01) ==
LOC: CARD 11:50
PROVIDERS: ATTEND Internal Medicine Cardiovascular Disease
DX: R00.2 Palpitations (principal); R06.02 Shortness of breath
CPT/HCPCS: 78452; 93017

== ENCOUNTER 2019-12-17 07:49 | Day surgery (SDC) | payer BC ==
[~2019-12-17] VITALS: Ht 152.4 cm; Wt 52.0 kg
[2019-12-17] MEDS ORDERED: LIDOCAINE 1% INJ 20 ML 20 ML VIAL ONE (07:55)
[2019-12-17 08:04] VITALS: BP 142/76
--- NOTE | 2019-12-17 14:13 | OPERATIVE REPORT ---
DATE OF SERVICE: 12/17/2019 PREOPERATIVE DIAGNOSIS: Palpitations. POSTOPERATIVE DIAGNOSIS: Palpitations. PROCEDURE: Implantable loop recorder implantation. INDICATIONS: The patient is a 59-year-old lady who has previously had ablation for supraventricular tachycardia, but is now having palpitations that are quite bothersome to her and that are relatively infrequent (although they are recently been becoming more frequent). Implantable loop recorder implantation was carried out today after having obtained an informed consent. DESCRIPTION OF PROCEDURE: [facility] The left prepectoral area was prepared and draped in the usual sterile fashion. Lidocaine 1% was used for local anesthesia. The tools provided with the [employer] implantable loop recorder were used to make a subcutaneous pocket anterior to the fourth intercostal space on the left side into which the device was placed. The skin edges were closed using Steri-Strips and Dermabond. The serial number of the implantable loop recorder is [id number]. The patient tolerated the procedure well. Job ID: [id number] DocumentID: [id number] Dictated Date: 12/17/2019 09:56:20 [place] [employer] Date: 12/17/2019 14:12:31 Dictated By: ADRIENNE ROMO MD, MA, FACP, FACC,
== END 2019-12-17 09:45 | disposition home or self-care (01) ==
LOC: CATH 07:49
PROVIDERS: ATTEND Internal Medicine Cardiovascular Disease
DX: R00.2 Palpitations (principal); R06.02 Shortness of breath; Z79.82 Long term (current) use of aspirin; Z79.899 Other long term (current) drug therapy; Z83.3 Family history of diabetes mellitus; Z82.3 Family history of stroke
CPT/HCPCS: 33285; C1764

== ENCOUNTER 2020-04-01 14:47 | Outpatient (CLI) | payer BC ==
[~2020-04-01] VITALS: Ht 152 cm; Wt 52.0 kg
[2020-04-01] MEDS ORDERED: NS IV 500 ML 500 ML IV SCH ×2 (15:15→16:30)
[2020-04-01 15:54] VITALS: BP 126/97
[2020-04-01 17:16] VITALS: BP 118/59
[2020-04-01 17:31] VITALS: BP 121/61
[2020-04-01 17:46] VITALS: BP 120/70
[2020-04-01 19:17] VITALS: BP 125/67
== END 2020-04-01 19:30 ==
LOC: SDC 14:47
PROVIDERS: ATTEND Nurse Practitioner Family
DX: D64.9 Anemia, unspecified (principal)
CPT/HCPCS: 36430; 86850; 86900; 86901; 86920; P9016

== ENCOUNTER 2020-04-07 08:45 | Emergency (ER) | payer BC ==
[~2020-04-07] VITALS: Ht 154.9 cm; Wt 52.2 kg
--- NOTE | 2020-04-07 10:08 | ED General ---
General Chief Complaint: General Problems/Pain Stated Complaint: L ARM BRUISED Nursing Triage Note: AMB TO ROOM REPORTS THAT LAST MON HAD BLOOD TRANSFUSION IN IV WAS IN L WRIST. TODAY NOTICED A BRUISE POP UP WHILE AT WORK. LIGHT BRUSING NOTED ON L WRIST REPORTS TENDER TO TOUCH. Nursing Sepsis Screen: No Definite Risk Source of Information: Patient Exam Limitations: No Limitations History of Present Illness Date Seen by Provider: Apr 07, 2020 Time Seen by Provider: 09:55 Initial Comments Patient presents to the emergency room for evaluation of bruising and swelling on the ventral surface of the left wrist. This was the area of an IV line for a blood transfusion last Monday (5 days ago). She did not notice any problems with the IV site until today while she was at work. She felt a popping sensation and discomfort. She then noticed the swelling and bruising. She denies any other unusual bruising or bleeding. She is presently under work-up for severe anemia. Allergies and Home Medications Allergies Coded Allergies: No Known Drug Allergies (Unverified , 08/05/17) Home Medications Omeprazole 40 Mg Capsule.dr, 40 MG PO BID, (Reported) Sucralfate 1 Gm Tablet, 1 GM PO QID, (Reported) PT HAS NOT TAKEN MED IN OVER 1 MONTH,REPORTS SHE IS OUT OF MED Patient Home Medication List Home Medication List Reviewed: Yes Review of Systems Review of Systems Constitutional: no symptoms reported EENTM: no symptoms reported Respiratory: no symptoms reported Cardiovascular: no symptoms reported Gastrointestinal: no symptoms reported Genitourinary: no symptoms reported Musculoskeletal: no symptoms reported Skin: see HPI Psychiatric/Neurological: No Symptoms Reported Hematologic/Lymphatic: See HPI Immunological/Allergic: no symptoms reported Past Voxoqdm-Nephns-Dhkpcg Hx Patient Social History Alcohol Use: Denies Use Smoking Status: Never a Smoker 2nd Hand Smoke Exposure: No Recent Infectious Disease Expo: No Recent Hopitalizations: No Immunizations Up To Date Tetanus Booster (TDap): Unknown Date of Influenza Vaccine: Oct 21, 2019 Seasonal Allergies Seasonal Allergies: No Past Medical History Surgeries: Yes (CARPEL TUNNEL RELEASE) Abdominal, Cardiac, Section, Eye Surgery, Gallbladder, Orthopedic, Tubal Ligation Respiratory: No Cardiac: Yes (CARDIAC ABLATION 2009 ) Palpitations Neurological: No Headaches /Migraines Reproductive Disorders: Yes [employer] History: Tubal Ligation, Menopausal Genitourinary: No Gastrointestinal: Yes (GASTROPARESIS) Gastroesophageal Reflux, Obstructive Bowel, Pancreatitis, Ulcer Musculoskeletal: Yes Degenerate Disk Disease, Chronic Back Pain Endocrine: No HEENT: No Cancer: Yes Skin Did You Recieve Any Treatments: Yes What Type of Treatment Did You: Surgical Intervention Psychosocial: Yes Sleep Difficulties Integumentary: No Blood Disorders: Yes (Severe anemia) Adverse Reaction/Blood Tranf: No March 2020 Family Medical History Cardiovascular disease 19 MOTHER Diabetes mellitus 19 MOTHER FH: congestive heart failure 19 MOTHER FH: melanoma 19 FATHER Gastroenteritis DAUGHTER Hypertension 19 MOTHER Polio 19 FATHER Heart Disease, Cancer, Hypertension Physical Exam Vital Signs Vital Signs - First Documented 04/07/20 04/07/20 08:49 10:17 Temp 36.4 Pulse 75 Resp 18 B/P (MAP) 157/78 (104) Pulse Ox 99 O2 Delivery Room Air Capillary Refill : Less Than 3 Seconds Height, Weight, BMI Height: 5'0.00" Weight: 115lbs. 4.0oz. 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 Norm as Tested Skin: Normal Color, Warm/Dry, Ecchymosis Progress/Results/Core Measures Suspected Sepsis Recent Fever Within 48 Hours: No Infection Criteria Present: None New/Unexplained Altered Menta: No Sepsis Screen: No Definite Risk SIRS Temperature: Pulse: 75 Respiratory Rate: 18 Blood Pressure 157 /78 Mean: 104 Results/Orders Vital Signs/I&O 04/07/20 04/07/20 08:49 10:17 Temp 36.4 Pulse 75 70 Resp 18 18 B/P (MAP) 157/78 (104) 142/75 Pulse Ox 99 99 O2 Delivery Room Air Capillary Refill : Less Than 3 Seconds Blood Pressure Mean: 104 Progress Note : Progress Note I suspect patient had a vessel rupture at the location of the IV start. She seems to have a small hematoma under the skin. A light pressure dressing was a pplied with gauze and Coban. Follow-up with her primary care provider was recommended. Departure Impression Primary Impression: Hematoma of intravenous catheter site Qualified Codes: T82.898A - Other specified complication of vascular prosthetic devices, implants and grafts, initial encounter Disposition: 01 HOME, SELF-CARE Condition: Stable Departure-Patient Inst. Decision time for Depature: 10:06 Referrals: CRISTIAN COMBS MD (PCP/Family) Primary Care Physician Patient Instructions: HEMATOMA Add. Discharge Instructions: Your symptoms are likely due to a rupture or leak from a vein in your wrist. Applying a gentle compress, elevating, and icing in 20-minute intervals should help reduce the spread of this hematoma. You will probably have migration of bruising over the next 1 to 2 weeks which is normal for bruises and hematomas. Please inform Dr. Combs of this issue. Return to the emergency room if you h ave worsening symptoms including increasing pain, increasing swelling, fever, or unusual bleeding from other sites. Call with questions or concerns. All discharge instructions reviewed with patient and/or family. Voiced understanding. Copy Copies To 1: CRISTIAN COMBS MD, JOSHUA T MD Apr 07, 2020 10:08
[2020-04-07 10:17] VITALS: BP 142/75
== END 2020-04-07 10:19 | disposition home or self-care (01) ==
LOC: EDUNIT# 08:45 → ER 08:47
DX: T82.898A Other specified complication of vascular prosthetic devices, implants and grafts, initial encounter (principal); K21.9 Gastro-esophageal reflux disease without esophagitis; Z85.828 Personal history of other malignant neoplasm of skin
CPT/HCPCS: 99281

== ENCOUNTER → 2020-08-07 | Outpatient (CLI) | payer BC ==
[~2020-08-07] MED LIST changes: -OMEP40CA27 PO; +OMEP40CA6 PO
== END ==
LOC: CARD 14:00
PROVIDERS: ATTEND Internal Medicine Cardiovascular Disease
DX: R01.1 Cardiac murmur, unspecified (principal)
CPT/HCPCS: 93306

== ENCOUNTER → 2022-04-18 | Outpatient (CLI) | payer BC, OTHER | LOC: CARD 07:49 | PROVIDERS: ATTEND Internal Medicine Cardiovascular Disease | DX: I34.0 Nonrheumatic mitral (valve) insufficiency (principal) | CPT/HCPCS: 93306 ==